=== PATIENT | female | born 1940 | race Two or more races ===

== ENCOUNTER 2025-08-08 06:48 | Inpatient (IN) | payer MEDICARE ==
[~2025-08-08] VITALS: Ht 149.9 cm; Wt 53.0 kg
--- NOTE | 2025-08-08 07:13 | ED.PDOC ---
HPI Comments HPI: Sarah Petty historian 85 y.o female presents via EMS with chest pain that began around 06:00 a.m. this morning. The pain, described as sharp and localized to the left side, started while she was getting up to use the restroom. She reports that the pain worsens by deep inspiration and with movement. While en route to the ED, EMS performed breathing exercises with the patient, which led to a significant improvement in her pain, decreasing her reported pain level from a 6/10 to a 1/10. The patient's history is limited due to her being a poor historian, as she is unable to recall the current month or day, though she does know the year. She cannot provide the names of her medications but reports taking "vitamins for a llergies" for which her PCP is testing her. She reports having episodes of forgetfulness where she recognizes individuals but cannot remember their names. For context on her recent activity, she mentioned cleaning yesterday and planning to feed her son's goat today. According to EMS, the patient lives alone, was on the phone with her daughter earlier today, and was able to ambulate outside to meet the EMS crew this morning. Patient did not bring phone with her therefore we have no contact with daughter nor other family members to assist with giving additional medical history. Initial Vitals BP: 120/63 HR: 98 RR: 16 O2: 99% RA Temp:98.4 Past Medical History: Unknown- Past Surgical History: Unknown Social History: Unknown Allergies: Unknown sarah: cristian HPI: Malinda Leivaian. REVIEW OF SYSTEMS: CONSTITUTIONAL: Denies acute: fever, diaphoresis, chills, generalized weakness. HEAD: Denies acute: headache, photophobia Eyes: Denies acute: Double vision, vision loss, eye pain, eye discharge. EARS: Denies acute: tinnitus, hearing loss, ear discharge, ear pain, THROAT: Denies acute: sore throat, swelling, difficulty swallowing , pain with swallowing, change in voice. NECK: Denies acute: neck pain, neck swelling, stiff neck. HEART: Denies acute : palpitations, LUNGS: Denies acute: SOB, wheezing, cough, hemoptysis ABDOMEN: Denies acute: abdominal pain, Nausea, Vomiting, diarrhea, melena , hematemesis, hematochezia SKIN: Denies acute: rash, redness, lesions, itchiness. EXTREMITIES: Denies acute: calf pain, numbness, tingling, weakness, denies pain in extremity. Denies acute: Low back pain. Neuro: Denies acute: focal neurological deficit, motor or sensory focal neurological deficit, tremors, seizure like activity, confusion, dizziness, change in mental status, loss of bowel or bladder function, cauda equina like symptoms. : Denies acute: dysuria, hematuria, flank pain, increase in urinary frequency. PSYCH: Denies acute: hallucination, suicidal ideation, homicidal ideation. FEMALE: Denies acute: abnormal vaginal bleeding, foul odor, unusual discharge. PHYSICAL EXAM: General: ------no--acute distress, awake and alert. Head: normocephalic, atraumatic. Neck: supple, trachea is midline, no swelling. Throat: Normal phonation. Eyes:, no erythema, no purulent discharge, no proptosis, no icterus. Heart: regular rate, regular rhythm, no significant murmur appreciated. Lungs: no apparent respiratory distress, Able to speak in full sentences. No wheezing, no rhonchi, no crackles. No stridors Clear to auscultation bilaterally. Abdomen: non tender to palpation, non distended, soft, no guarding, no rebound, + bowel sounds. Neuro: Awake, Alert, oriented to name, self, situation, follows commands GCS=15. Speech is normal. Skin: no petechia, no purpura, no cyanosis, non-pale, not jaundice. Lower extremities: --no - Pitting edema no deformity, no focal swelling, no calf TTP. Makes eye contact. moves all four extremities. Face: no apparent facial droop. ED COURSE: DISCLAIMER: This medical document was created using an electronic medical record system with voice recognition software and computerized dictation system. Although this document has been carefully reviewed, there might still be some phonetic and typographical errors. Occasional wrong-word or "sound-alike" substitutions may have occurred due to the inherent limitations of voice recognition software. These areas are purely typographical due to imperfections of the software programs and do not reflect any compromise in the patient's medical care. Please read the chart carefully and recognize, using context, where these substitutions have occurred. Chief Complaint: Chest Pain Time Seen by MD: 06:53 Reviewed Notes: Allergies Allergies: Coded Allergies: No Known Drug Allergy (Verified Allergy, Unknown, 08/08/25) Home Meds Active Scripts Azithromycin (Azithromycin) 500 Mg Tab, 1 TAB PO DAILY, #7 TAB Prov:CASSIE DAWSON MD 08/11/25 Reported Medications Lorazepam (ATIVAN TABLET) 0.5 Mg Tb, 1 TAB PO DAILY, #30 TAB 08/09/25 Cetirizine Hcl (Kls Aller-Evaristo) 10 Mg Tab, 1 CAP PO DAILY, #30 TAB 3 Refills 08/09/25 Ergocalciferol (VITAMIN D 08319 UNIT) 50,000 Unit Cp, 1250 UNIT PO, CAP 08/09/25 Ketoconazole (Ketoconazole) 2 % Cre, 2 % EX, CRE 08/09/25 Clobetasol Propionate (Clobetasol Propionate) 0.05 % Cre, 0.05 % EX, CRE 08/09/25 Fluticasone Propionate (Fluticasone Propionate) 0.05 % Cre, 50 MCG WILLOW for 30 Days, MCG 08/09/25 Alendronate Sodium (Alendronate Sodium) 70 Mg Tab, 1 TAB PO QWEEKLY, #4 TAB 3 Refills 08/09/25 Clotrimazole (Clotrimazole) 1 % Cre, 1 APPLIC TOP Q12HR for 30 Days, APPLIC 08/09/25 Information Source: Patient, Emergency Med Personnel Mode of Arrival: EMS Severity: Moderate Duration: Since onset Past Medical History PAST MEDICAL HISTORY: Unobtainable Surgical History: Unobtainable [employer]EM[employer] History: Unobtainable Family History Family History: Unobtainable Social History Smoker: Unknown Alcohol: Unknown Drugs: Unknown Lives In: Home Was a procedure done? Was a procedure done?: No CP Differential Dx Differential Diagnosis: N/A Differential Diagnosis: Angina, Chest Wall Pain, Costochondritis, Myocardial Infarction, Pericarditis, Other (Ddx include but not limitied to gastritis, musculoskeletal pain, radiculopathy, atypical chest pain, dissection, aneurysm, ACS, unstable angina, hiatal hernia, GERD, anxiety, costochondritis, PE, pneumothroax, neoplasm, cardiac ischemia, drug abuse, anemia.) X-Ray, Labs, Meds, VS Vital Signs Date Time Temp Pulse Resp B/P (MAP) Pulse Ox O2 Delivery O2 Flow Rate FiO2 08/08/25 09:52 73 08/08/25 09:14 77 21 128/36 (66) 98 08/08/25 07:58 77 08/08/25 07:42 73 18 96 Room Air* 0 21 08/08/25 07:42 98.2 73 18 120/42 (68) 96 98.2 08/08/25 07:03 78 08/08/25 06:50 98.4 98 16 120/63 99 98.4 Lab Test 08/08/25 09:02 08/08/25 08:19 08/08/25 07:08 Range/Units Urine Color Light-yellow Yellow Urine Clarity Turbid H Clear Urine pH 6.5 5.0-9.0 Urine Specific [place] 1.020 1.001-1.035 Urine Protein Negative Negative Urine Ketones Negative Negative Urine Blood Negative Negative /uL Urine Nitrite Negative Negative Urine Bilirubin Negative Negative Urine Urobilinogen Normal Negative mg/dL Urine Leukocyte Esterase Negative Negative /uL Urine RBC 7 0 - 4 /hpf Urine Microscopic WBC 9 H 0-5 /HPF Urine Squamous Epithelial Cells Few <5 /hpf Urine Bacteria Few H None Seen /hpf Urine Mucus Few None Seen Urine Glucose Normal Normal mg/dL Troponin I High Sensitivity 13 14 </=34 ng/L White Blood Count 4.9 4.4-10.8 10^3/uL Red Blood Count 4.45 4.0-5.20 10^6/uL Hemoglobin 12.1 L 12.2-16.2 g/dL Hematocrit 36.4 36.0-46.0 % Mean Corpuscular Volume 81.8 80.0-100.0 fL Mean Corpuscular Hemoglobin 27.2 L 28.0-32.0 pg Mean Corpuscular Hemoglobin Concent 33.2 32.0-36.0 g/dL Red Cell Distribution Width 13.8 11.8-14.3 % Platelet Count 222 140-450 10^3/uL Mean Platelet Volume 8.8 6.9-10.8 fL Neutrophils (%) (Auto) 37.0-80.0 % Lymphocytes (%) (Auto) 10.0-50.0 % Monocytes (%) (Auto) 0.0-12.0 % Basophils (%) (Auto) 0.0-2.0 % Neutrophils # (Auto) 1.6-8.6 10 ^3/uL Lymphocytes # (Auto) 0.4-5.4 10 ^3/uL Monocytes # (Auto) 0-1.3 10 ^3/uL Differential Total Cells Counted 100.0 100 Neutrophils % (Manual) 74 37.0-80.0 Band Neutrophils % (Manual) 3 Lymphocytes % (Manual) 6 L 10.0-50.0 Monocytes % (Manual) 5 0-12 Eosinophils % (Manual) 12 H 0-7 Basophils % (Manual) 0 0.0-2.0 Metamyelocytes % (manual) 0 Myelocytes % (Manual) 0 Promyelocytes % (Manual) 0 Blast Cells % (Manual) 0 Reactive Lymphocytes 0 Platelet Estimate Adequate Sodium Level 142 136-145 mmol/L Potassium Level 4.0 3.5-5.1 mmol/L Chloride Level 106 98-107 mmol/L Carbon Dioxide Level 27 20-31 mmol/L Anion Gap 9 5-15 Blood Urea Nitrogen 17 9-23 mg/dL Creatinine 0.51 L 0.550-1.02 mg/dL Glomerular Filtration Rate Calc 93 >90 mL/min BUN/Creatinine Ratio 33.3 H 10.0-20.0 Serum Glucose 111 H 74-106 mg/dL Calcium Level 9.0 8.7-10.4 mg/dL Total Bilirubin 0.4 0.2-1.0 mg/dL Aspartate Amino Transferase (AST) 19 13-40 U/L Alanine Aminotransferase (ALT) 11 7-40 U/L Alkaline Phosphatase 110 46-116 U/L Total Protein 6.3 5.7-8.2 g/dL Albumin 4.2 3.2-4.8 g/dL Time of 1ST Reevaluation: 07:04 Reevaluation 1ST: Unchanged Patient Education/Counseling: Other Family Education/Counseling: No Family Present Comments MDM: patient presented with the above HPI.--chest pain----workup was initiated. patient was found with the above mentioned diagnosis. the following medications were ordered: please refer to order lists of meds and tests obtained by myself Dr. Reynolds. Patient ED course and VS have been stabilized. Patient has been reassessed in the ED and remained in a stable condition. Pertinent incidental findings were discussed with the patient and/or family. Patient/family voices understanding and is agreeable with plan. Patient has been observed in the ED adequate length of time to insure improvement/stability. Escalation of care considered: Consideration of escalation to observation or admission Rocephin azithromycin antibiotics for pneumonia were initiated by the admitting team. Patient was ADMITTED to the medicine team for further evaluation and treatment of their presentation. All the reports of any imaging studies that were ordered by myself were reviewed by myself. Departure 1 Departure Time of Disposition: 08:43 Impression: Primary Impression: Chest pain Disposition: ADMITTED INPATIENT Admit to: Tele Condition: Guarded e-Prescriptions Azithromycin (Azithromycin) 500 Mg Tab 1 TAB PO DAILY, #7 TAB Prov: CASSIE DAWSON MD 08/11/25 Discharged With: Self Critical Care Note Critical Care Time?: No Heart Score Heart Score: Heart Score Response (Comments) Value History Moderate Suspicious 1 EKG Normal 0 Age >65 2 Risk Factors 1 or 2 risk factors 1 Troponin Normal limit 0 Total 4 I personally scribed for SALBADOR REYNOLDS DO ([email or web address]) on 08/08/25 at 07:13. Electronically submitted by Ernestina Bajwa ([facility]). SALBADOR REYNOLDS DO Aug 08, 2025 07:13
[2025-08-08 07:42] VITALS: PULSE 73; RESP 18; O2SAT 96
[2025-08-08 08:20] LABS: Hematocrit 36.4 % (36.0-46.0); Hemoglobin 12.1 g/dL (12.2-16.2); Mean Corpuscular Hemoglobin 27.2 pg (28.0-32.0); Mean Corpuscular Volume 81.8 fL (80.0-100.0)
[2025-08-08 08:33] LABS: Alanine Aminotransferase 11 U/L (7-40); Albumin 4.2 g/dL (3.2-4.8); Alkaline Phosphatase 110 U/L (46-116); Anion Gap 9 (5-15); BUN/Creatinine Ratio 33.3 (10.0-20.0); Blood Urea Nitrogen 17 mg/dL (9-23); Calcium 9.0 mg/dL (8.7-10.4); Carbon Dioxide 27 mmol/L (20-31); Chloride 106 mmol/L (98-107); Potassium 4.0 mmol/L (3.5-5.1); Sodium 142 mmol/L (136-145); Total Protein 6.3 g/dL (5.7-8.2)
[2025-08-08 08:34] LABS: Bilirubin, Total 0.4 mg/dL (0.2-1.0); Glucose 111 mg/dL (74-106)
[2025-08-08 08:36] LABS: Total Cells Counted 100.0 (100)
--- NOTE | 2025-08-08 09:17 | DVH ---
AP portable chest CLINICAL INDICATION: cp Comparison: FINDINGS: The heart size is slightly enlarged. Focal infiltrate in the right lower lobe. Left lung clear. IMPRESSION: 1. Focal right lower lobe infiltrate. Cardiomegaly
--- NOTE | 2025-08-08 09:53 | ECG ---
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
--- NOTE | 2025-08-08 10:04 | ECG ---
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
--- NOTE | 2025-08-08 10:14 | DVHHPRES ---
History of Present Illness Resident Creating Document: MELIZA VENTURA RESIDENT Reason for Visit: Chest pain, pneumonia History of Present Illness Aiyana Grewal is an 85-year-old female who presents with chest pain that began suddenly this morning. The patient reports that she got up in the morning, went to the restroom, and suddenly experienced what she described as a "heart attack" with severe pain in the chest area. The pain was significant enough that she called an ambulance for transport to the hospital. She denies any recent exposure to individuals with cough or flu symptoms. The patient reports no shortness of breath, fever, or chills associated with her symptoms. She states she has been experiencing some memory difficulties over the past few months, noting that she forgets names and numbers but knows what things are. She lives alone but close to her son. The patient denies smoking, drinking alcohol, or using drugs throughout her life. She reports having multiple food allergies requiring a plain diet without sauces but could not recall the specific a llergens or names of her allergy medications. She denies having diabetes or hypertension. Past Medical History - Recent onset memory impairment with difficulty remembering names and numbers, noticed over the past few months - Food allergies, specific allergens not specified - Takes allergy medication at home, specific medication name forgotten Past Social History - Substance Use: Denies tobacco, alcohol, and recreational drug use throughout life - Living Situation: Lives alone, close to son who wants to be nearby Review of Systems Review of Systems CONSTITUTIONAL: Denies weight loss, fever and chills. HEENT: Denies changes in vision and hearing. RESPIRATORY: Denies SOB and cough. CV: Denies palpitations and chest pain. GI: Denies abdominal pain, nausea, vomiting and diarrhea. : Denies dysuria and urinary frequency. MSK: Denies myalgia and joint pain. SKIN: Denies rash and pruritus. Neurological: Positive for recent memory difficulties over the past few months. Allergies: Coded Allergies: No Known Drug Allergy (Verified Allergy, Unknown, 08/08/25) Medications Current Medications Medications Dose Ordered Sig/[place] Route Start Time Stop Time Status Last Admin Dose Admin Sodium Chloride 1,000 ml @ 60 mls/hr [id number] IV 08/08/25 10:15 UNV Ondansetron HCl 4 mg Q4HP PRN IV 08/08/25 10:15 UNV Enoxaparin Sodium 40 mg DAILY SC 08/09/25 10:00 UNV Morphine Sulfate 2 mg Q4HPRN PRN IV 08/08/25 10:15 UNV Nitroglycerin 0.4 mg Q5MINP PRN SL 08/08/25 10:15 UNV Morphine Sulfate 2 mg Q30M PRN IV 08/08/25 10:15 UNV Exam Vital Signs Vital Signs Date Time Temp Pulse Resp B/P (MAP) Pulse Ox O2 Delivery O2 Flow Rate FiO2 08/08/25 09:52 73 08/08/25 07:42 18 96 Room Air* 0 21 08/08/25 07:42 98.2 120/42 (68) 98.2 Exam GENERAL: Not in acute distress. HEENT: EOMI, Moist mucous membranes. No scleral icterus. No cervical lymphadenopathy. LUNGS: Clear to auscultation bilaterally. No accessory muscle use. CARDIOVASCULAR: Regular rate and rhythm. No murmur. No JVD. ABDOMEN: Soft, nontender and nondistended. No palpable masses. EXTREMITIES: No edema. Nontender. SKIN: No rashes or lesions. Warm. NEUROLOGIC: Alert and oriented X2 Labs/Xrays Labs Test 08/08/25 09:02 08/08/25 08:19 08/08/25 07:08 Range/Units Troponin I High Sensitivity 13 </=34 ng/L White Blood Count 4.9 4.4-10.8 10^3/uL Red Blood Count 4.45 4.0-5.20 10^6/uL Hemoglobin 12.1 L 12.2-16.2 g/dL Hematocrit 36.4 36.0-46.0 % Mean Corpuscular Volume 81.8 80.0-100.0 fL Mean Corpuscular Hemoglobin 27.2 L 28.0-32.0 pg Mean Corpuscular Hemoglobin Concent 33.2 32.0-36.0 g/dL Red Cell Distribution Width 13.8 11.8-14.3 % Platelet Count 222 140-450 10^3/uL Mean Platelet Volume 8.8 6.9-10.8 fL Neutrophils (%) (Auto) 37.0-80.0 % Lymphocytes (%) (Auto) 10.0-50.0 % Monocytes (%) (Auto) 0.0-12.0 % Basophils (%) (Auto) 0.0-2.0 % Neutrophils # (Auto) 1.6-8.6 10 ^3/uL Lymphocytes # (Auto) 0.4-5.4 10 ^3/uL Monocytes # (Auto) 0-1.3 10 ^3/uL Differential Total Cells Counted 100.0 100 Neutrophils % (Manual) 74 37.0-80.0 Band Neutrophils % (Manual) 3 Lymphocytes % (Manual) 6 L 10.0-50.0 Monocytes % (Manual) 5 0-12 Eosinophils % (Manual) 12 H 0-7 Basophils % (Manual) 0 0.0-2.0 Metamyelocytes % (manual) 0 Myelocytes % (Manual) 0 Promyelocytes % (Manual) 0 Blast Cells % (Manual) 0 Reactive Lymphocytes 0 Platelet Estimate Adequate Sodium Level 142 136-145 mmol/L Potassium Level 4.0 3.5-5.1 mmol/L Chloride Level 106 98-107 mmol/L Carbon Dioxide Level 27 20-31 mmol/L Anion Gap 9 5-15 Blood Urea Nitrogen 17 9-23 mg/dL Creatinine 0.51 L 0.550-1.02 mg/dL Glomerular Filtration Rate Calc 93 >90 mL/min BUN/Creatinine Ratio 33.3 H 10.0-20.0 Serum Glucose 111 H 74-106 mg/dL Calcium Level 9.0 8.7-10.4 mg/dL Total Bilirubin 0.4 0.2-1.0 mg/dL Aspartate Amino Transferase (AST) 19 13-40 U/L Alanine Aminotransferase (ALT) 11 7-40 U/L Alkaline Phosphatase 110 46-116 U/L Total Protein 6.3 5.7-8.2 g/dL Albumin 4.2 3.2-4.8 g/dL SEPSIS Sepsis Screen Date sepsis recognized/suspect: Aug 08, 2025 Time Sepsis recognized/suspect: 0742 Recent Procedure: No On Antibiotic Therapy: No Respiratory Rate >20: No Heart Rate >90: No Temp<36 C (96.8 F) or >38.3 C: No SBP <90 or MAP <65 mmHG: No New Acute Mental Status Change: No Is the patient on CPAP, BIPAP,: No Physician Orders Urinalysis (08/08/25 07:00) Chest Portable (08/08/25 07:00) Troponin-I Hs (08/08/25 10:00) Electrocardigram (08/08/25 10:00) Admit (08/08/25 10:05) Code Status (08/08/25 10:05) Sodium Chloride 0.9% (08/08/25 10:15) Ondansetron Hcl (Zofran) (08/08/25 10:15) Enoxaparin Sodium (Lovenox) (08/09/25 10:00) Complete Blood Count (08/09/25 04:00) Comprehensive Metabolic Panel (08/09/25 04:00) Echo 2d Mode Cardiac Dop (08/08/25 10:05) Morphine Sulfate Injection (08/08/25 10:15) Nitroglycerin Sublingual (Ntrostat Subli (08/08/25 10:15) Morphine Sulfate Injection (08/08/25 10:15) Oxygen By Nasal Cannula (08/08/25 10:05) Stat Ekg For Chest Pain (08/08/25 10:05) Notify Md Of Changes From Base (08/08/25 10:05) Emergency Dysrhythmia Protocol (08/08/25 10:05) Regular Diet (08/08/25 Lunch) Ceftriaxone 1gm/50ml (Rocephin) (08/08/25 10:15) Ceftriaxone 1gm/50ml (Rocephin) (08/08/25 10:09) Azithromycin 500mg/ 250ml (Zithromax 50 (08/08/25 10:15) Azithromycin 500mg/ 250ml (Zithromax 50 (08/09/25 10:00) Vital Signs Date Time Temp Pulse Resp B/P (MAP) Pulse Ox O2 Delivery O2 Flow Rate FiO2 08/08/25 09:52 73 08/08/25 07:58 77 08/08/25 07:42 73 18 96 Room Air* 0 21 08/08/25 07:42 98.2 73 18 120/42 (68) 96 98.2 08/08/25 07:03 78 08/08/25 06:50 98.4 98 16 120/63 99 98.4 Laboratory Tests Test 08/08/25 07:08 White Blood Count 4.9 10^3/uL (4.4-10.8) Assessment/Plan Assessment/Plan # possible Gram-positive/negative bacterial Pneumonia # chest pain due to pneumonia # ruled out ACS - troponin negative, EKG shows no ST-elevation - Breathing treatment as needed - empiric antibiotic IV Rocephin 1 g daily, azithromycin 500 mg IV daily - continue morning lab # Cognitive Decline - symptomatic management - Follow up on cognitive status at discharge and arrange outpatient neurology consultation if indicated # Multiple Food Allergies - Consult with dietary services to ensure appropriate meal planning during hospitalization - Recommend patient to bring a list of specific food allergies for future medical encounters. Goal of care discussed with patient for 34 mins: Full Code Plan discussed with Dr. Gruber. Plan discussed with: Patient My Orders Orders - MELIZA VENTURA RESIDENT Procedure Category Date Status Time Admit ADMIT 08/08/25 Transmitted 10:05 Code Status CODE 08/08/25 Transmitted 10:05 Sodium Chloride 0.9% PHA 08/08/25 Logged 10:15 Ondansetron Hcl PHA 08/08/25 Logged (Zofran) 10:15 Enoxaparin Sodium PHA 08/09/25 Logged (Lovenox) 10:00 Complete Blood Count LAB 08/09/25 Verified 04:00 Comprehensive LAB 08/09/25 Verified Metabolic Panel 04:00 Echo 2d Mode Cardiac US 08/08/25 Logged DOP 10:05 Morphine Sulfate PHA 08/08/25 Logged Injection 10:15 Nitroglycerin PHA 08/08/25 Logged Sublingual (Ntrostat 10:15 Morphine Sulfate PHA 08/08/25 Logged Injection 10:15 Oxygen By Nasal RT 08/08/25 Transmitted Cannula 10:05 Stat Ekg For Chest GELY 08/08/25 In Process Pain 10:05 Notify Of Changes GELY 08/08/25 In Process From Base 10:05 Emergency Dysrhythmia GELY 08/08/25 In Process Protocol 10:05 Regular Diet DIET 08/08/25 Transmitted Lunch Ceftriaxone 1gm/50ml PHA 08/08/25 Logged (Rocephin) 10:15 Ceftriaxone 1gm/50ml PHA 08/08/25 Logged (Rocephin) 10:09 Azithromycin 500mg/ PHA 08/08/25 Logged 250ml (Zithromax 50 10:15 Azithromycin 500mg/ PHA 08/09/25 Logged 250ml (Zithromax 50 10:00 Date of Service: Aug 08, 2025 ([place] Patient) Billing Provider: HARLEY GRUBER MD Common Visit Codes: [id number] INP/OBS CARE (HIGH) Secondary Visit Codes: [id number] CARE PLAN 30 MINUTES MELIZA VENTURA RESIDENT Aug 08, 2025 10:14 HARLEY GRUBER MD Aug 09, 2025 13:05
[2025-08-08] MEDS ORDERED: NITROGLYCERIN 0.4 MG SL TAB SL PRN (10:15)
[2025-08-08] MEDS ORDERED: ONDANSETRON HCL 4 MG/2 ML VIAL IV PRN (10:15)
[2025-08-08] MEDS ORDERED: MORPHINE SULFATE 4 MG/ML SYR/VIAL IV PRN ×2 (10:30)
[2025-08-08 10:41] LABS: Urine Protein, UAD Negative (Negative)
[2025-08-08] MEDS: SODIUM CHLORIDE 0.9% 1,000 ML IV SCH (12:52)
[2025-08-08] MEDS: AZITHROMYCIN 500MG/ 250ML 250 ML IV ONE (14:00)
[2025-08-08] MEDS ORDERED: TALC (STERILE) 5GM SUSP PL SCH (14:00)
[2025-08-08 17:00] VITALS: BP 120/48; PULSE 61; RESP 12; TEMP 97.9; O2SAT 99
[2025-08-08 20:00] VITALS: PULSE 87; RESP 18; O2SAT 98
[2025-08-08 21:00] VITALS: BP 117/61; PULSE 87; RESP 18; TEMP 98.7; O2SAT 98
[2025-08-09] VITALS (8 sets, daily range): BP systolic 114–137; BP diastolic 44–69; PULSE 72–83; RESP 12–18; TEMP 98.2–98.7; O2SAT 94–99
[2025-08-09 06:13] LABS: Hemoglobin 11.9 g/dL (12.2-16.2)
[2025-08-09 06:17] LABS: Hematocrit 36.2 % (36.0-46.0); Mean Corpuscular Hemoglobin 26.9 pg (28.0-32.0); Mean Corpuscular Volume 81.8 fL (80.0-100.0)
[2025-08-09 06:46] LABS: Alkaline Phosphatase 95 U/L (46-116); Anion Gap 7 (5-15); BUN/Creatinine Ratio 21.6 (10.0-20.0); Blood Urea Nitrogen 11 mg/dL (9-23); Calcium 8.7 mg/dL (8.7-10.4); Carbon Dioxide 28 mmol/L (20-31); Chloride 105 mmol/L (98-107); Potassium 3.9 mmol/L (3.5-5.1); Sodium 140 mmol/L (136-145); Total Protein 5.8 g/dL (5.7-8.2)
[2025-08-09 06:47] LABS: Albumin 3.9 g/dL (3.2-4.8); Bilirubin, Total 0.4 mg/dL (0.2-1.0)
[2025-08-09 07:04] LABS: Alanine Aminotransferase 9 U/L (7-40); Glucose 111 mg/dL (74-106)
[2025-08-09 07:56] LABS: Total Cells Counted 100.0 (100)
[2025-08-09] MEDS: ENOXAPARIN SOD 40 MG/0.4 ML SYRINGE SC SCH (09:12)
[2025-08-09] MEDS: AZITHROMYCIN 500MG/ 250ML 250 ML IV SCH (10:32)
--- NOTE | 2025-08-09 12:10 | DVHPN2 ---
Reviewed: Care Plan, H&P, Labs, Medications, Previous Orders, Radiology Changes from previous H/P or p: No Changes Objective Vitals Vital Signs Date Time Temp Pulse Resp B/P (MAP) Pulse Ox O2 Delivery O2 Flow Rate FiO2 08/09/25 09:00 98.2 72 12 125/54 (77) 97 98.2 08/08/25 20:00 Room Air* 0 21 Intake/Output Intake and Output 08/09/25 07:00 Intake Total 520 ml Balance 520 ml Intake Oral 120 ml IV Total 400 ml # Voids 2 Medications Current Medications Medications Dose Ordered Sig/[place] Route Start Time Stop Time Status Last Admin Dose Admin Sodium Chloride 1,000 ml @ 60 mls/hr [id number] IV 08/08/25 10:15 08/08/25 12:52 60 MLS/HR Ondansetron HCl 4 mg Q4HP PRN IV 08/08/25 10:15 Enoxaparin Sodium 40 mg DAILY SC 08/09/25 10:00 08/09/25 09:12 40 MG Morphine Sulfate 2 mg Q4HPRN PRN IV 08/08/25 10:30 Nitroglycerin 0.4 mg Q5MINP PRN SL 08/08/25 10:15 Morphine Sulfate 2 mg Q30M PRN IV 08/08/25 10:30 Ceftriaxone Sodium 50 ml @ 100 mls/hr DAILY@0900 IV 08/09/25 09:00 08/09/25 09:11 100 MLS/HR Azithromycin 250 ml @ 125 mls/hr DAILY IV 08/09/25 10:00 08/09/25 10:32 125 MLS/HR Laboratory Results Laboratory Tests 08/09/25 05:33 Chemistry Test 08/09/25 05:33 Albumin 3.9 g/dL (3.2-4.8) Calcium Level 8.7 mg/dL (8.7-10.4) Total Protein 5.8 g/dL (5.7-8.2) LFT Test 08/09/25 05:33 Alanine Aminotransferase (ALT) 9 U/L (7-40) Alkaline Phosphatase 95 U/L (46-116) Aspartate Amino Transferase (AST) 18 U/L (13-40) Total Bilirubin 0.4 mg/dL (0.2-1.0) Urinalysis Test 08/08/25 09:02 Urine Color Light-yellow (Yellow) Urine Clarity Turbid (Clear) H Urine pH 6.5 (5.0-9.0) Urine Specific [place] 1.020 (1.001-1.035) Urine Protein Negative (Negative) Urine Ketones Negative (Negative) Urine Blood Negative /uL (Negative) Urine Nitrite Negative (Negative) Urine Bilirubin Negative (Negative) Urine Urobilinogen Normal mg/dL (Negative) Urine Leukocyte Esterase Negative /uL (Negative) Urine RBC 7 /hpf (0 - 4) Urine Microscopic WBC 9 /HPF (0-5) H Urine Squamous Epithelial Cells Few /hpf (<5) Urine Bacteria Few /hpf (None Seen) H Urine Mucus Few (None Seen) Urine Glucose Normal mg/dL (Normal) Labs and/or images reviewed: Labs reviewed by me, Image(s) reviewed by me Assessment/Plan Assessment/Plan Right lower lobe pneumonia Gram-positive versus Gram-negative community- acquired: Rocephin azithromycin: Morphine Chest pain secondary to pneumonia: Ruled out ACS: Troponin negative EKG no ST-elevation cardiology consult to Dr. Quiros Dementia Time spent 55 minutes Patient is full code Advanced care planning time 20 mts Lives alone Plan discussed with: Patient Date of Service: Aug 09, 2025 Billing Provider: CASSIE DAWSON MD Common Visit Codes: [id number] INP/OBS CARE(HIGH) Secondary Visit Codes: [id number] CARE PLAN 30 MINUTES CASSIE DAWSON MD Aug 09, 2025 12:10
--- NOTE | 2025-08-09 15:56 | DVHINCON2 ---
Date Seen: Aug 09, [address] Mahoney Reason for Consultation Chest pain History of Present Illness An 85-year-old [place] mainly speaking female with no known past medical history presented to the ED via EMS with complaint of chest pain. She reports the pain as sharp in nature, worsened by deep inspiration, and beginning yesterday morning as she was going to the restroom. The spontaneous onset of pain p rompted her to call 911. In the ED, she was found to have pneumonia. A 12 lead ECG demonstrated sinus rhythm with no acute ischemic changes. Serial troponins have remained negative. Chest x-ray revealed right lower lobe infiltrate consistent with pneumonia and cardiomegaly. On assessment today, she denies chest pain, diaphoresis, palpitations, shortness of breath, or dyspnea. Past Medical History Denies Past Surgical History Denies Family History Reviewed, non-contributory to the management of this case. Social History The patient lives at home, denies smoking, alcohol or illicit drugs abuse. Allergies: Coded Allergies: No Known Drug Allergy (Verified Allergy, Unknown, 08/08/25) Current Medications Current Medications Medications (Trade) Dose Ordered Sig/[place] Route PRN Reason Start Time Stop Time Status Last Admin Enoxaparin Sodium (Lovenox) 40 mg DAILY SC 08/09/25 10:00 08/09/25 09:12 Ceftriaxone Sodium 50 ml @ 100 mls/hr DAILY@0900 IV 08/09/25 09:00 08/09/25 09:11 Azithromycin 250 ml @ 125 mls/hr DAILY IV 08/09/25 10:00 08/09/25 10:32 Review of Systems Constitutional: No symptom reported Ears, Nose, & Throat: No symptom reported Eyes: No symptom reported Neurological: No symptoms reported Pulmonary/Respiratory: No symptom reported Cardiovascular: Chest pain Gastrointestinal: No symptom reported Genitourinary: No symptom reported Musculoskeletal: No symptom reported Skin: No symptom reported Psychiatric: No symptom reported Endocrine: No symptom reported Hemotologic/Lymphatic: No symptom reported Vital Signs Vital Signs Date Time Temp Pulse Resp B/P (MAP) Pulse Ox O2 Delivery O2 Flow Rate FiO2 08/09/25 13:00 98.3 82 16 129/44 (72) 98 98.3 08/09/25 08:00 Room Air* 0 21 Physical Exam INITIAL VITAL SIGNS: Reviewed by me GENERAL: Alert and interactive. No acute distress. HEAD: Head is normocephalic and atraumatic. EYES: EOMI, PERRL. No scleral icterus. No conjunctival injection. ENT: Moist mucous membranes. NECK: Supple, No masses, Full range of motion. RESPIRATORY: No tachypnea. Clear breath sounds bilaterally. No wheezing, rales, rhonchi. CV: Regular rate and rhythm. No murmurs, rubs, or gallops. GI/: Active bowel sounds, soft, nondistended, nontender. No guarding. No rebound. No masses. No CVA tenderness. INTEGUMENTARY: Warm and dry. No obvious rashes. NEUROLOGIC: Alert and oriented. Face is symmetric. Speech is normal. Moves all extremities equally. Labs/Diagnostic Data Labs Test 08/09/25 05:33 08/08/25 10:17 08/08/25 09:02 Range/Units White Blood Count 5.3 4.4-10.8 10^3/uL Red Blood Count 4.42 4.0-5.20 10^6/uL Hemoglobin 11.9 L 12.2-16.2 g/dL Hematocrit 36.2 36.0-46.0 % Mean Corpuscular Volume 81.8 80.0-100.0 fL Mean Corpuscular Hemoglobin 26.9 L 28.0-32.0 pg Mean Corpuscular Hemoglobin Concent 32.9 32.0-36.0 g/dL Red Cell Distribution Width 14.0 11.8-14.3 % Platelet Count 224 140-450 10^3/uL Mean Platelet Volume 8.6 6.9-10.8 fL Neutrophils (%) (Auto) 37.0-80.0 % Lymphocytes (%) (Auto) 10.0-50.0 % Monocytes (%) (Auto) 0.0-12.0 % Eosinophils (%) (Auto) 0.0-7.0 % Basophils (%) (Auto) 0.0-2.0 % Neutrophils # (Auto) 1.6-8.6 10 ^3/uL Lymphocytes # (Auto) 0.4-5.4 10 ^3/uL Monocytes # (Auto) 0-1.3 10 ^3/uL Differential Total Cells Counted 100.0 100 Neutrophils % (Manual) 58 37.0-80.0 Band Neutrophils % (Manual) 2 Lymphocytes % (Manual) 11 10.0-50.0 Monocytes % (Manual) 10 0-12 Eosinophils % (Manual) 19 H 0-7 Basophils % (Manual) 0 0.0-2.0 Metamyelocytes % (manual) 0 Myelocytes % (Manual) 0 Promyelocytes % (Manual) 0 Blast Cells % (Manual) 0 Reactive Lymphocytes 0 Platelet Estimate Adequate Sodium Level 140 136-145 mmol/L Potassium Level 3.9 3.5-5.1 mmol/L Chloride Level 105 98-107 mmol/L Carbon Dioxide Level 28 20-31 mmol/L Anion Gap 7 5-15 Blood Urea Nitrogen 11 9-23 mg/dL Creatinine 0.51 L 0.550-1.02 mg/dL Glomerular Filtration Rate Calc 93 >90 mL/min BUN/Creatinine Ratio 21.6 H 10.0-20.0 Serum Glucose 111 H 74-106 mg/dL Hemoglobin A1c 5.6 <5.7 % A1C Calcium Level 8.7 8.7-10.4 mg/dL Total Bilirubin 0.4 0.2-1.0 mg/dL Aspartate Amino Transferase (AST) 18 13-40 U/L Alanine Aminotransferase (ALT) 9 7-40 U/L Alkaline Phosphatase 95 46-116 U/L Total Protein 5.8 5.7-8.2 g/dL Albumin 3.9 3.2-4.8 g/dL Thyroid Stimulating Hormone (TSH) 1.74 0.55-4.78 uIU/mL Troponin I High Sensitivity 14 </=34 ng/L Urine Color Light-yellow Yellow Urine Clarity Turbid H Clear Urine pH 6.5 5.0-9.0 Urine Specific [place] 1.020 1.001-1.035 Urine Protein Negative Negative Urine Ketones Negative Negative Urine Blood Negative Negative /uL Urine Nitrite Negative Negative Urine Bilirubin Negative Negative Urine Urobilinogen Normal Negative mg/dL Urine Leukocyte Esterase Negative Negative /uL Urine RBC 7 0 - 4 /hpf Urine Microscopic WBC 9 H 0-5 /HPF Urine Squamous Epithelial Cells Few <5 /hpf Urine Bacteria Few H None Seen /hpf Urine Mucus Few None Seen Urine Glucose Normal Normal mg/dL PROCEDURE(s): CXRP - CHEST PORTABLE REASON: cp ORDER NUMBER(s): [id number], ACCESSION NUMBER(s): [id number] AP portable chest CLINICAL INDICATION: cp Comparison: FINDINGS: The heart size is slightly enlarged. Focal infiltrate in the right lower lobe. Left lung clear. IMPRESSION: 1. Focal right lower lobe infiltrate. Cardiomegaly Assessment Right lower lobe pneumonia Cardiomegaly Chest pain-- atypical, possible noncardiac, likely due to above ?Dementia Plan/Recommendation (Dr. Estrada ): * Obtain echocardiogram to assess ventricular function and structural heart disease * Continue to monitor on telemetry * Antibiotic management per primary team For unremarkable echocardiogram, cardiology we will sign off. This medical document was created using an electronic medical record system with voice recognition software and computerized dictation system. Although this document has been carefully reviewed, there might still be some phonetic and typographical errors. Occasional wrong-word or ``sound-alike substitutions may have occurred due to the inherent limitations of voice recognition software. These areas are purely typographical due to imperfections of the software programs and do not reflect any compromise in the patient's medical care. Please read the chart carefully and recognize, using context, where these substitutions have occurred. Plan discussed with: Patient Plan discussed with: Patient NYHA Physical activity limitations: NA Date of Service: Aug 09, 2025 Billing Provider: WILLIAM ESTRADA MD Cardiology Common Codes: NOT BILLABLE Cardiology Consultation Codes: [id number] CONSULT <45MIN VIJAY DENNIS [employer]ES TEAM[employer] Aug 09, 2025 15:56
[2025-08-09 16:11] LABS: Cholesterol 123 mg/dL (< 200)
[2025-08-09 16:13] LABS: HDL Cholesterol 28 mg/dL (40-59); Triglycerides 174 mg/dL (< 150)
[2025-08-09] MEDS ORDERED: ERGO1CAP23 PO (18:05)
[2025-08-09] MEDS ORDERED: CLOB0.055 EX (18:05)
[2025-08-09] MEDS ORDERED: CLOT1CRE51 TOP (18:05)
[2025-08-09] MEDS ORDERED: ALEN70TA74 PO (18:05)
[2025-08-09] MEDS ORDERED: LORA-1121 PO (18:05)
[2025-08-09] MEDS ORDERED: CETI10TA2 PO (18:05)
[2025-08-09] MEDS ORDERED: KETO2CRE4 EX (18:05)
[2025-08-09] MEDS ORDERED: FLUT0.05 NAS (18:05)
--- NOTE | 2025-08-09 22:28 | DVHSR ---
APPROVED REPORT EXAM: Two-dimensional and M-mode echocardiogram with Doppler and color Doppler. Blood Pressure: 114/64 mmHg INDICATION Rule out heart failure RISK FACTORS Height: 4'11", Weight: 121 DIMENSIONS LVDd4.5 (3.8-5.7cm)LA (2D)3.6 (1.9-4.0cm)Aortic Root3.2 (2.0-3.7cm) LVDs2.8 (2.5-4.0cm)LA (MM) (1.9-4.0cm)Aortic Cusp Exc1.7 (1.5-2.0cm) EF (%) 65.0 (55-70%)Rt. Atrium3.6 (1.9-4.0cm)Asc. Aorta cm IVSd1.1 (0.7-1.1cm)RV (D) (1.8-2.4cm) PWd0.9 (0.7-1.1cm) Mitral Valve MitralMitral Stenosis E wave1.12m/sMV Mean GR.mmHg A wave0.99m/sMV Peak GR.mmHg E/A ratio1.12D MVAcm2 DECEL [id number] 1/2 Timems Aortic Valve Aortic ValveAortic Stenosis V11.08m/Arturo Mean GR.3mmHg V21.33m/Arturo Peak GR.7mmHg LVOT Diameter2.0 (1.8-2.4cm)Doppler AVA2.55cm2 Pulmonic Valve V21.05m/s Tricuspid Valve TR Velocity2.58m/s [id number] Conclusion lvef 55% mild lvh normal rv function left atrium enlarged no severe valve abnormalities noted trivial pericardial effusion
[2025-08-10] VITALS (7 sets, daily range): BP systolic 110–154; BP diastolic 46–71; PULSE 64–89; RESP 16–18; TEMP 98.1–98.9; O2SAT 94–98
--- NOTE | 2025-08-10 09:32 | DVHPN2 ---
Reviewed: Care Plan, H&P, Labs, Medications, Previous Orders, Radiology Changes from previous H/P or p: No Changes Objective Vitals Vital Signs Date Time Temp Pulse Resp B/P (MAP) Pulse Ox O2 Delivery O2 Flow Rate FiO2 08/10/25 08:20 Room Air* 0 21 08/10/25 05:00 98.9 77 16 127/62 (83) 94 98.9 Intake/Output Intake and Output 08/10/25 07:00 Intake Total 1066 ml Balance 1066 ml Intake Oral 406 ml IV Total 660 ml # Voids 6 # Bowel Movements 3 Medications Current Medications Medications Dose Ordered Sig/[place] Route Start Time Stop Time Status Last Admin Dose Admin Sodium Chloride 1,000 ml @ 60 mls/hr [id number] IV 08/08/25 10:15 08/09/25 22:27 60 MLS/HR Ondansetron HCl 4 mg Q4HP PRN IV 08/08/25 10:15 Enoxaparin Sodium 40 mg DAILY SC 08/09/25 10:00 08/09/25 09:12 40 MG Morphine Sulfate 2 mg Q4HPRN PRN IV 08/08/25 10:30 Nitroglycerin 0.4 mg Q5MINP PRN SL 08/08/25 10:15 Morphine Sulfate 2 mg Q30M PRN IV 08/08/25 10:30 Ceftriaxone Sodium 50 ml @ 100 mls/hr DAILY@0900 IV 08/09/25 09:00 08/09/25 09:11 100 MLS/HR Azithromycin 250 ml @ 125 mls/hr DAILY IV 08/09/25 10:00 08/09/25 10:32 125 MLS/HR Laboratory Results Laboratory Tests 08/09/25 05:33 Urinalysis Test 08/08/25 09:02 Urine Color Light-yellow (Yellow) Urine Clarity Turbid (Clear) H Urine pH 6.5 (5.0-9.0) Urine Specific [place] 1.020 (1.001-1.035) Urine Protein Negative (Negative) Urine Ketones Negative (Negative) Urine Blood Negative /uL (Negative) Urine Nitrite Negative (Negative) Urine Bilirubin Negative (Negative) Urine Urobilinogen Normal mg/dL (Negative) Urine Leukocyte Esterase Negative /uL (Negative) Urine RBC 7 /hpf (0 - 4) Urine Microscopic WBC 9 /HPF (0-5) H Urine Squamous Epithelial Cells Few /hpf (<5) Urine Bacteria Few /hpf (None Seen) H Urine Mucus Few (None Seen) Urine Glucose Normal mg/dL (Normal) Labs and/or images reviewed: Labs reviewed by me, Image(s) reviewed by me Assessment/Plan Assessment/Plan Right lower lobe pneumonia Gram-positive versus Gram-negative community- acquired: Rocephin azithromycin: Morphine Chest pain secondary to pneumonia: ACS ruled out: Troponin negative EKG no ST-elevation cardiology consult to Dr. Quiros appreciated, echo 55 % ejection fraction Dementia Time spent 55 minutes Patient is full code Advanced care planning time 20 mts Lives alone Daughter has POA Plan discussed with: Patient My Orders Orders - CASSIE DAWSON MD Procedure Category Date Status Time * Cardiology Consult CONS 08/09/25 Transmitted 12:10 Date of Service: Aug 10, 2025 Billing Provider: CASSIE DAWSON MD Common Visit Codes: [id number] INP/OBS CARE(HIGH) CASSIE DAWSON MD Aug 10, 2025 09:32
--- NOTE | 2025-08-10 19:06 | ECG ---
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
[2025-08-11 01:00] VITALS: BP 123/52; PULSE 81; RESP 17; TEMP 98.3; O2SAT 95
[2025-08-11 05:00] VITALS: BP 129/62; PULSE 89; RESP 17; TEMP 98.9; O2SAT 94
[2025-08-11 09:00] VITALS: BP 121/53; PULSE 75; RESP 16; TEMP 98.5; O2SAT 96
[2025-08-11] MEDS ORDERED: AZIT500T66 PO (09:26)
--- NOTE | 2025-08-11 09:34 | DVHPN2 ---
Reviewed: Care Plan, H&P, Labs, Medications, Previous Orders, Radiology Changes from previous H/P or p: No Changes Objective Vitals Vital Signs Date Time Temp Pulse Resp B/P (MAP) Pulse Ox O2 Delivery O2 Flow Rate FiO2 08/11/25 05:00 98.9 89 17 129/62 (84) 94 98.9 08/10/25 20:00 Room Air* 0 21 Intake/Output Intake and Output 08/11/25 07:00 Intake Total 2220 ml Balance 2220 ml Intake Oral 1320 ml IV Total 900 ml # Voids 3 # Bowel Movements 1 Medications Current Medications Medications Dose Ordered Sig/[place] Route Start Time Stop Time Status Last Admin Dose Admin Sodium Chloride 1,000 ml @ 60 mls/hr [id number] IV 08/08/25 10:15 08/09/25 22:27 60 MLS/HR Ondansetron HCl 4 mg Q4HP PRN IV 08/08/25 10:15 Enoxaparin Sodium 40 mg DAILY SC 08/09/25 10:00 08/10/25 09:37 40 MG Morphine Sulfate 2 mg Q4HPRN PRN IV 08/08/25 10:30 Nitroglycerin 0.4 mg Q5MINP PRN SL 08/08/25 10:15 Morphine Sulfate 2 mg Q30M PRN IV 08/08/25 10:30 Ceftriaxone Sodium 50 ml @ 100 mls/hr DAILY@0900 IV 08/09/25 09:00 08/10/25 09:36 100 MLS/HR Azithromycin 250 ml @ 125 mls/hr DAILY IV 08/09/25 10:00 08/10/25 09:36 125 MLS/HR Laboratory Results Laboratory Tests 08/09/25 05:33 Urinalysis Test 08/08/25 09:02 Urine Color Light-yellow (Yellow) Urine Clarity Turbid (Clear) H Urine pH 6.5 (5.0-9.0) Urine Specific [place] 1.020 (1.001-1.035) Urine Protein Negative (Negative) Urine Ketones Negative (Negative) Urine Blood Negative /uL (Negative) Urine Nitrite Negative (Negative) Urine Bilirubin Negative (Negative) Urine Urobilinogen Normal mg/dL (Negative) Urine Leukocyte Esterase Negative /uL (Negative) Urine RBC 7 /hpf (0 - 4) Urine Microscopic WBC 9 /HPF (0-5) H Urine Squamous Epithelial Cells Few /hpf (<5) Urine Bacteria Few /hpf (None Seen) H Urine Mucus Few (None Seen) Urine Glucose Normal mg/dL (Normal) Labs and/or images reviewed: Labs reviewed by me, Image(s) reviewed by me Assessment/Plan Assessment/Plan Right lower lobe pneumonia Gram-positive versus Gram-negative community- acquired: Rocephin azithromycin: Morphine Chest pain secondary to pneumonia: ACS ruled out: Troponin negative EKG no ST-elevation cardiology consult to Dr. Quiros appreciated, echo 55 % ejection fraction Dementia Time spent 55 minutes Patient is full code Advanced care planning time 20 mts Lives alone Daughter has POA at bedside RN bing at bed side Plan discussed with: Patient Date of Service: Aug 11, 2025 Billing Provider: CASSIE DAWSON MD Common Visit Codes: [id number] INP/OBS CARE(HIGH) CASSIE DAWSON MD Aug 11, 2025 09:34
--- NOTE | 2025-08-11 09:39 | DVHDS2 ---
Discharge Summary Date of Admission Aug 08, 2025 at 10:05 Date of Discharge: Aug 11, 2025 Admitting Diagnosis Chest pain Wounds: None Labs/Diagnostic Data: Laboratory Results Test 08/09/25 05:33 08/08/25 10:17 08/08/25 09:02 White Blood Count 5.3 10^3/uL (4.4-10.8) Red Blood Count 4.42 10^6/uL (4.0-5.20) Hemoglobin 11.9 g/dL (12.2-16.2) Hematocrit 36.2 % (36.0-46.0) Mean Corpuscular Volume 81.8 fL (80.0-100.0) Mean Corpuscular Hemoglobin 26.9 pg (28.0-32.0) Mean Corpuscular Hemoglobin Concent 32.9 g/dL (32.0-36.0) Red Cell Distribution Width 14.0 % (11.8-14.3) Platelet Count 224 10^3/uL (140-450) Mean Platelet Volume 8.6 fL (6.9-10.8) Neutrophils (%) (Auto) % (37.0-80.0) Lymphocytes (%) (Auto) % (10.0-50.0) Monocytes (%) (Auto) % (0.0-12.0) Eosinophils (%) (Auto) % (0.0-7.0) Basophils (%) (Auto) % (0.0-2.0) Neutrophils # (Auto) 10 ^3/uL (1.6-8.6) Lymphocytes # (Auto) 10 ^3/uL (0.4-5.4) Monocytes # (Auto) 10 ^3/uL (0-1.3) Differential Total Cells Counted 100.0 (100) Neutrophils % (Manual) 58 (37.0-80.0) Band Neutrophils % (Manual) 2 Lymphocytes % (Manual) 11 (10.0-50.0) Monocytes % (Manual) 10 (0-12) Eosinophils % (Manual) 19 (0-7) Basophils % (Manual) 0 (0.0-2.0) Metamyelocytes % (manual) 0 Myelocytes % (Manual) 0 Promyelocytes % (Manual) 0 Blast Cells % (Manual) 0 Reactive Lymphocytes 0 Platelet Estimate Adequate Sodium Level 140 mmol/L (136-145) Potassium Level 3.9 mmol/L (3.5-5.1) Chloride Level 105 mmol/L (98-107) Carbon Dioxide Level 28 mmol/L (20-31) Anion Gap 7 (5-15) Blood Urea Nitrogen 11 mg/dL (9-23) Creatinine 0.51 mg/dL (0.550-1.02) Glomerular Filtration Rate Calc 93 mL/min (>90) BUN/Creatinine Ratio 21.6 (10.0-20.0) Serum Glucose 111 mg/dL (74-106) Hemoglobin A1c 5.6 % A1C (<5.7) Calcium Level 8.7 mg/dL (8.7-10.4) Total Bilirubin 0.4 mg/dL (0.2-1.0) Aspartate Amino Transferase (AST) 18 U/L (13-40) Alanine Aminotransferase (ALT) 9 U/L (7-40) Alkaline Phosphatase 95 U/L (46-116) Total Protein 5.8 g/dL (5.7-8.2) Albumin 3.9 g/dL (3.2-4.8) Triglycerides Level 174 mg/dL (< 150) Cholesterol Level 123 mg/dL (< 200) LDL Cholesterol 74 mg/dL (< 100) HDL Cholesterol 28 mg/dL (40-59) Thyroid Stimulating Hormone (TSH) 1.74 uIU/mL (0.55-4.78) Troponin I High Sensitivity 14 ng/L (</=34) Urine Color Light-yellow (Yellow) Urine Clarity Turbid (Clear) Urine pH 6.5 (5.0-9.0) Urine Specific [place] 1.020 (1.001-1.035) Urine Protein Negative (Negative) Urine Ketones Negative (Negative) Urine Blood Negative /uL (Negative) Urine Nitrite Negative (Negative) Urine Bilirubin Negative (Negative) Urine Urobilinogen Normal mg/dL (Negative) Urine Leukocyte Esterase Negative /uL (Negative) Urine RBC 7 /hpf (0 - 4) Urine Microscopic WBC 9 /HPF (0-5) Urine Squamous Epithelial Cells Few /hpf (<5) Urine Bacteria Few /hpf (None Seen) Urine Mucus Few (None Seen) Urine Glucose Normal mg/dL (Normal) Other Laboratory Tests 08/09/25 05:33 Brief Hx & Hospital Course: 85-year-old female came in for chest pain troponin negative EKG no ST-elevation changes consult by Cardiology echo 55 percent ejection fraction ACS ruled out patient has a history of dementia. Chest x-ray showed right lower lobe pneumonia community-acquired treated with Rocephin azithromycin morphine patient has a chest pain secondary to pleuritic chest pain. At the time of discharge patient is afebrile on room air stable vital signs and is requesting to go home patient's daughter at bedside. Patient discharged home on azithromycin for pneumonia. Consults/Reason for consult Cardiology Operations or Procedures Chest x-ray Condition at Discharge: Fair Final Diagnosis/Problems List Right lower lobe pneumonia Gram-positive versus Gram-negative community-acquired: Rocephin azithromycin: Morphine Chest pain secondary to pneumonia: ACS ruled out: Troponin negative EKG no ST-elevation cardiology consult to Dr. Ishaan chiang, echo 55 % ejection fraction Dementia Discharge Disposition: Home Discharge Instruct/Medications Diet: Cardiac 2g Na,low cholest Activity: Light activity Follow Up/Referral: Follow up with the primary Dr in one week Resume all previous home medications Medications: Azithromycin Transmitted to pharmacy Scheduled Alendronate Sodium (Alendronate Sodium), 1 TAB PO QWEEKLY, (Reported) Azithromycin (Azithromycin), 1 TAB PO DAILY Cetirizine Hcl (Kls Aller-Evaristo), 1 CAP PO DAILY, (Reported) Clotrimazole (Clotrimazole), 1 APPLIC TOP Q12HR, (Reported) Lorazepam (Ativan Tablet), 1 TAB PO DAILY, (Reported) Miscellaneous Medications Clobetasol Propionate (Clobetasol Propionate), 0.05 % EX, (Reported) Ergocalciferol (Vitamin D 30307 Unit), 1,250 UNIT PO, (Reported) Fluticasone Propionate (Fluticasone Propionate), 50 MCG WILLOW, (Reported) Ketoconazole (Ketoconazole), 2 % EX, (Reported) 39 (Time taken for discharge summary 39 minutes) Discharge Statement: "Patient was advised to return to the ER or call 911 if any headaches, dizziness, shortness of breath, chest pain, abdominal pain, bleeding, fevers, or worsening of medical condition. Patient was counseled about treatment plan, medications, possible side effects, patientverbalized understanding. All questions were answered to the best of my ability. This discharge took greater then 30 minutes in planning, reviewing documentation, counseling the patient, and discussing with other team members." ASSESSMENT ASSESSMENT Hospital Course Uneventful Assessment Right lower lobe pneumonia Gram-positive versus Gram-negative community- acquired: Rocephin azithromycin: Morphine Chest pain secondary to pneumonia: ACS ruled out: Troponin negative EKG no ST-elevation cardiology consult to Dr. Ishaan chiang, echo 55 % ejection fraction Dementia Date of Service: Aug 11, 2025 Billing Provider: CASSIE DAWSON MD Common Visit Codes: [id number] DISCH DAY >30min CASSIE DAWSON MD Aug 11, 2025 09:39
== END 2025-08-11 12:38 | disposition home or self-care (01) | DRG 179 ==
LOC: ER 06:48 → EDBD 06:48 → OVERFLOW 10:05 → CENTRAL 14:42
PROVIDERS: ADMIT Family Medicine; ATTEND Family Medicine
DX: J15.69 Pneumonia due to other Gram-negative bacteria (principal); J15.9 Unspecified bacterial pneumonia; F03.90 Unspecified dementia, unspecified severity, without behavioral disturbance, psychotic disturbance, mood disturbance, and anxiety; T78.1XXA Other adverse food reactions, not elsewhere classified, initial encounter; Z79.899 Other long term (current) drug therapy; X58.XXXA Exposure to other specified factors, initial encounter
CPT/HCPCS: 36415; 71045; 80053; 80061; 81001; 83036; 84443; 84484; 85007; 85027; 93005; 93306; 96361; 96365; 96366; 96367; G0378